=== PATIENT | female | born 1970 | race Caucasian/White ===

== ENCOUNTER 2017-10-22 11:21 | Inpatient (IN) ==
[2017-10-22] MEDS ORDERED: Metoprolol Tartrate 25 MG Tablet PO ONE (12:34)
[2017-10-22] MEDS ORDERED: Chlorhexidine Gluconate 2% 1 Pack (2 Cloths) TOPICAL ONE (12:34)
[2017-10-22] MEDS ORDERED: Bupivacaine/Epinephrine Inj 0.25% 50 ML Vial ONE (12:36)
[2017-10-22] MEDS ORDERED: ceFAZolin 2 GM Premix Inj 2 GM/100 ML BAG IV.SIG ONE (12:49)
[2017-10-22] MEDS ORDERED: Sodium Chlor 0.9% Inj 500 ML IV.SIG SCH (13:00)
[2017-10-22] MEDS ORDERED: ceFAZolin 2 GM/NS 100 ML IV; Q8H IV.SIG SCH ×2 (13:00)
[2017-10-22 13:11] LABS: Baso # (Auto) 0.1 th/mm3 (0.0-0.2); Baso % (Auto) 1.2 % (0.0-2.0); Eos # (Auto) 0.1 th/mm3 (0.0-0.4); Eos % (Auto) 2.3 % (0.0-4.0); Hematocrit 41.9 % (35.0-46.0); Hemoglobin 13.9 gm/dL (11.6-15.3); Lymph # (Auto) 1.8 th/mm3 (1.0-4.8); Lymph % (Auto) 34.9 % (9.0-44.0); Mean Corpuscular HGB Conc 33.2 % (32.0-36.0); Mean Corpuscular Hemoglobin 29.8 pg (27.0-34.0); Mean Corpuscular Volume 89.8 fL (80.0-100.0); Mean Platelet Volume 8.1 fL (7.0-11.0); Mono # (Auto) 0.3 th/mm3 (0.0-0.9); Mono % (Auto) 5.2 % (0.0-8.0); Neut % (Auto) 56.4 % (16.0-70.0); Platelet Count 253 th/mm3 (150-450); Red Blood Count 4.67 mil/mm3 (4.00-5.30); Red Cell Distribution Width 14.8 % (11.6-17.2); White Blood Count 5.2 th/mm3 (4.0-11.0)
[2017-10-22] MEDS ORDERED: Glycopyrrolate Inj 1 MG/5 ML Syringe IV.PUSH ONE (13:34)
[2017-10-22] MEDS ORDERED: Neostigmine Inj 5 MG/5 ML Syringe IV.PUSH ONE (13:34)
[2017-10-22] MEDS ORDERED: Metoprolol Inj 5 MG/5 ML Vial IV.PUSH ONE (13:34)
[2017-10-22] MEDS ORDERED: Lidocaine PF 1% Inj 5 ML Syringe OTHER ONE (13:34)
[2017-10-22 13:53] LABS: Anion Gap 9 meq/L (5-15); Blood Urea Nitrogen 8 mg/dL (7-18); Calcium 8.8 mg/dL (8.5-10.1); Carbon Dioxide 25.6 meq/L (21.0-32.0); Chloride 106 meq/L (98-107); Glomerular Filtration Rate Greater Than 89 mL/min (>89); Glucose,Random 85 mg/dL (74-106); Potassium 4.1 meq/L (3.5-5.1); Sodium 141 meq/L (136-145)
[2017-10-22] MEDS ORDERED: Bupivacaine Liposomal PF 1.3% Inj 20 ML Vial ONE (14:04)
--- NOTE | 2017-10-22 17:17 | XR ---
EXAM DATE: 10/22/2017 5:13 PM EDT AGE/SEX: 46 years / Female INDICATIONS: Instrument verification. CLINICAL DATA: This is the patient's initial encounter. Patient reports that signs and symptoms have been present for 1 day and indicates a pain score of Nonresponsive. MEDICAL/SURGICAL HISTORY: None. None. COMPARISON: POI, CT ABDOMEN AND PELVIS W/ CONTRAST, 10/01/2017. . FINDINGS: Surgical skin kaylyn overlie the midline pelvis. In addition overlying the pelvis is a catheter tubi ng. No metallic retractors are identified. CONCLUSION: Skin kaylyn and radiopaque catheter overlying the pelvis. Electronically signed by: Bronson Horn MD 10/22/2017 5:15 PM EDT
[2017-10-22] MEDS ORDERED: Naloxone Inj 0.4 MG/ML Vial IV.PUSH PRN ×2 (17:25→17:32)
[2017-10-22] MEDS ORDERED: Promethazine 25 MG Supp RECTAL PRN (17:25)
[2017-10-22] MEDS ORDERED: Post-op Orders (for Pharmacy) OTHER ONE (17:25)
[2017-10-22] MEDS ORDERED: *Meperidine Inj 25 MG/ML Vial PERIprocedural Use ONLY ONE (17:28)
[2017-10-22] MEDS: Sod Chloride 0.9% Inj 1,000 ML IV.CONT SCH (17:30)
[2017-10-22] MEDS ORDERED: HYDROmorphone PF Inj 2 MG/ML Vial ONE ×2 (17:34→17:59)
[2017-10-22] MEDS ORDERED: fentaNYL Citrate Inj 100 MCG/2 ML Ampul ONE ×2 (17:44)
[2017-10-22] MEDS ORDERED: Morphine Inj 4 MG/ML Vial ONE (17:44)
[2017-10-22] MEDS ORDERED: HYDROmorphone PCA Inj 6 MG/30 ML PCA.VIAL PCA ONE (17:48)
[2017-10-22] MEDS ORDERED: Balanced Salt Opth Irrigation 15 APPLIC/15 ML Bottle ONE (17:53)
[2017-10-22] MEDS ORDERED: Tetracaine 0.5% Opth Drops 4 ML Bottle ONE (17:53)
[2017-10-22] MEDS: HYDROmorphone PCA Inj 6 MG/30 ML PCA.VIAL PCA PRN (18:35)
[2017-10-22] MEDS ORDERED: Balanced Salt Opth Irrigation 15 APPLIC/15 ML Bottle RIGHT EYE ONE (19:00)
[2017-10-22] MEDS ORDERED: Tetracaine 0.5% Opth Drops 4 ML Bottle RIGHT EYE ONE (19:00)
--- NOTE | 2017-10-22 19:00 | MP ---
cc: Eleno Fan MD, Joseph D MD DATE OF OPERATION: 10/22/2017 PREOPERATIVE DIAGNOSIS: Diverticulitis with colovaginal fistula. POSTOPERATIVE DIAGNOSIS: Diverticulitis with colovaginal fistula. SURGEON Dr. Eleno Fan PROCEDURE PERFORMED: Rigid sigmoidoscopy PROCEDURE IN DETAIL: The patient is in the operating room. See Dr. Howard's complete dictation of the sigmoid resection with me assisting at the critical portions of that procedure. The patient was in [facility], and a rigid sigmoidoscopy was done up to 18 cm to see the distal segment of the rectum which was all normal without any diverticular disease. It had good prep. The EEA stapling 29 device was then placed under the direction with Dr. Howard, connected and fired. I then repeated the rigid sigmoidoscopy to check the anastomosis. We filled the colon with air under water, and there were no leaks along the anastomosis. See Dr. Howard's complete dictation. I then withdrew all the air from doing the rigid sigmoidoscopy, and the rigid sigmoidoscope was then removed. See Dr. Howard's dictation for the completion of the procedure. Eleno Fan MD JDB/adriana , 04:43 PM , 04:49 PM GIANCARLO
--- NOTE | 2017-10-22 21:02 | MP ---
cc: Gonzalo Howard MD DATE OF OPERATION: 10/22/2017 PREOPERATIVE DIAGNOSES: 1. History of complicated diverticulitis. 2. Recurrent diverticulitis. 3. Colovaginal fistula. POSTOPERATIVE DIAGNOSES: 1. History of complicated diverticulitis. 2. Recurrent diverticulitis. 3. Colovaginal fistula. PROCEDURE PERFORMED: 1. Laparoscopic-assisted sigmoid resection and takedown of colovaginal fistula. 2. Laparoscopic-assisted mobilization of splenic flexure. ANESTHESIA: General and regional TAP block. ATTENDING SURGEON: Gonzalo Howard MD SERVICE DESK ANALYST: Eleno Fan MD ESTIMATED BLOOD LOSS: 25 mL COMPLICATIONS: None. FINDINGS: A densely adhered chronic abscess cavity from the mid to distal sigmoid colon to the vaginal cuff and involving 2 distal loops of terminal ileum. Otherwise no intra-abdominal pathology noted. INDICATIONS: The patient is a 46-year-old female who earlier this year was admitted for nonoperative treatment of complicated diverticulitis. The patient responded well to antibiotics and did not require surgical or IR intervention for any drainage procedure. She resolved and was discharged to a liquid diet for outpatient followup. The patient followed up with surgery as well as gastroenterology and was planned to undergo a colonoscopy as well as was under consideration and workup for an elective sigmoid resection. Unfortunately at this time, the patient developed recurrent diverticulitis as diagnosed by CT scan as well as a colovaginal fistula with liquid stool and feculent material draining from her vagina. The patient did have a history of a previous hysterectomy over a decade ago. The patient was managed nonoperatively for this with antibiotics as well as with colonoscopy, and her pain and symptoms did resolve with significant decrease in the volume of drainage from her colovaginal fistula. After discussion with the patient about the risks, benefits, and alternatives to proceeding to the operating room including the possibility of a colostomy, the patient agreed to undergo the procedure. Of note, Dr. Fan's assistance was required throughout this procedure due to its complexity. This patient with chronic and active inflammation in the pelvis as well as with active diverticular-associated colovaginal fistula required 2 surgeons for the safe, efficient, and effective operation in this patient. Dr. Fan assisted during the operation with retraction, suctioning, dissection, operation of stapling devices, as well as intraoperative assistance with visualization and decision making for this complex case. DESCRIPTION OF PROCEDURE: The patient was taken to the operating room and placed in a supine position and placed under general endotracheal anesthesia. The patient was then placed into a lithotomy position. The patient's abdomen and perineum was prepped and draped in a sterile fashion. A timeout was performed. The abdomen was entered through an Optiview technique with a 5 mm port just below the umbilicus. A 5 mm incision was made with 11-blade scalpel and directly visualized entry into the abdominal cavity with a 5 mm camera. We insufflated the abdomen. We surveyed the abdomen, and there was no evidence of any complication from our entry. At this time, we saw no intra-abdominal pathology. Omentum down into the pelvis appeared normal. We then placed 2 additional 5 mm ports. One was in the upper midline, and one was in the lower midline under direct visualization of the laparoscope. We were able to use the laparoscopic LigaSure to take down the splenic flexure. We mobilized the white line of Toldt from the sigmoid colon to the descending colon and to the spleen. The colon was densely adhered to the splenic capsule, and we carefully took this down, all the splenocolic ligaments, with the LigaSure. We opened up the lesser sac by opening the gastrocolic ligament below the level of the short gastrics and took this down to better expose the gastrocolic ligament prior to dividing it. This gave us several centimeters of stretch so we would have ample release of her colon for reconstruction to avoid tension on the anastomosis. At this point in time, we continued our dissection, and we took down some adhesions from the sigmoid to the left pelvic wall. We did encounter the colovaginal fistula site as we worked further distal on the sigmoid colon. This was very dense and could not be taken down laparoscopically without putting significant risk to injuring the bladder. At this point in time, I felt we needed to gain better exposure, and we did place a small hand port type incision below the umbilicus. We directly opened the skin, subcutaneous tissue, and fascia between our most inferior 2 ports below the umbilicus at the midline with the Bovie electrocautery. We placed a large Vahid wound protector. We then placed a Bookwalter retractor to gain some good lift on the pelvic wall with small body wall retractors. This gave us good exposure of her fistula. We used the LigaSure as well as the right angle and dissection, and after approximately 15 minutes of tedious dissection, we were able to free the colon from the vaginal cuff. There was no discernable hole into the vaginal cuff, although there was significant inflammation and thickening of the vaginal cuff. We placed a [id number] 2-0 Vicryl suture in this area in Lembert type fashion to facilitate closure of this fistula site. We also used the Metzenbaum scissors to take down several filmy adhesions as well as some dense adhesions from 2 loops of distal ileum to the sigmoid colon at the site of the perforation and previous chronic abscess. Once we had freed this up, we were able to fully visualize our sigmoid colon. We noted we had very healthy, normal-appearing proximal sigmoid and descending colon as well as the rectum and very distal rectosigmoid junction. It was completely normal grossly. On palpation, this palpated to be normal without any palpable abnormality, and this was pink, and the tissue was not edematous. I felt that performing a resection of the sigmoid colon and a primary anastomosis would be safe and appropriate at this time. We used a GI 55 stapler to divide our proximal margin at the proximal sigmoid at the junction with the descending colon, and then we used the LigaSure device to take the mesentery down below the area of diverticular perforation and down to the splaying of the tinea. We were below the splaying of the mesentery and the splaying of the tinea and exactly at the rectosigmoid junction at this time. We fired a contour stapler with a green load at our distal margin without difficulty. The specimen was passed off with a stitch proximal for permanent processing by pathology. Excellent intact staple line with no bleeding or no leak, and this appeared to be viable and healthy. We did at this time take our distal descending colon, removed the staple line, carefully incised this. A size 29 was found to be the appropriate size for this patient's colon. We placed a pursestring device followed by a 29 EEA anvil in the descending colon and tied down the pursestring device. We then turned our attention towards the distal portion of the anastomosis. Dr. Fan did perform a rigid proctoscopy at this time, and please see his separate dictated operative note. We were able to perform an end-to-end anastomosis with the EEA 29 stapler from the descending colon to the rectosigmoid junction without difficulty. We had good intact donuts after removal of the stapler and inspection. We did insufflate the anastomosis under water with no leak. We did place several small 3-0 silk Lembert sutures at the stapled anastomosis. We irrigated out the abdomen including the pelvis thoroughly until all suctioning was clear with 2 L of warm saline. We placed a 10-Eritrean round Pedro drain down to the pelvis through a separate stab incision in the right lower quadrant. We sutured this in place with a nylon suture. We then placed the omentum back over the midline as well as down into the pelvis. We turned our attention toward closure of the midline. We closed the midline fascia with a #1 looped PDS suture. We closed the skin with skin kaylyn, and a JOHN dressing was applied. We then closed the one remaining port site with 4-0 Monocryl and Dermabond in subxiphoid position. I placed a drain to bulb suction. The patient did undergo a regional TAP block at this time. Please see anesthesia's separate dictated documentation. The patient was discontinued from anesthesia and taken to the PACU in stable condition. All counts were correct with the exception of an additional instrument which was not in the original count. Postoperative x-ray was performed and showed no evidence of retained surgical objects. The patient tolerated the procedure well with no apparent complications. I was present and scrubbed for the entire operation. Dr. Fan was present and actively assisted throughout the entire operation with the exception of the laparoscopic mobilization of splenic flexure. MD SHASHA Brown/adriana , 06:00 PM , 06:20 PM
[2017-10-22] MEDS: Piperacil/Tazo 3.375 GM Premix 50 ML IV.SIG SCH (21:14)
[2017-10-22] MEDS: Enoxaparin Inj 40 MG/0.4 ML Syringe SQ SCH (21:16)
[2017-10-23] MEDS: HYDROmorphone PCA Inj 6 MG/30 ML PCA.VIAL PCA PRN ×4 (02:49→20:47)
[2017-10-23 07:07] LABS: Baso % (Auto) 0.2 % (0.0-2.0); Eos % (Auto) 0.3 % (0.0-4.0); Hematocrit 36.4 % (35.0-46.0); Hemoglobin 12.1 gm/dL (11.6-15.3); Lymph # (Auto) 1.3 th/mm3 (1.0-4.8); Lymph % (Auto) 14.1 % (9.0-44.0); Mean Corpuscular HGB Conc 33.3 % (32.0-36.0); Mean Corpuscular Hemoglobin 30.1 pg (27.0-34.0); Mean Corpuscular Volume 90.5 fL (80.0-100.0); Mean Platelet Volume 8.3 fL (7.0-11.0); Mono # (Auto) 0.4 th/mm3 (0.0-0.9); Mono % (Auto) 4.6 % (0.0-8.0); Neut # (Auto) 7.4 th/mm3 (1.8-7.7); Neut % (Auto) 80.8 % (16.0-70.0); Platelet Count 221 th/mm3 (150-450); Red Blood Count 4.03 mil/mm3 (4.00-5.30); Red Cell Distribution Width 15.2 % (11.6-17.2); White Blood Count 9.1 th/mm3 (4.0-11.0)
[2017-10-23 07:19] LABS: Anion Gap 11 meq/L (5-15); Blood Urea Nitrogen 8 mg/dL (7-18); Calcium 7.7 mg/dL (8.5-10.1); Carbon Dioxide 24.3 meq/L (21.0-32.0); Chloride 109 meq/L (98-107); Glomerular Filtration Rate Greater Than 89 mL/min (>89); Glucose,Random 90 mg/dL (74-106); Potassium 4.2 meq/L (3.5-5.1); Sodium 144 meq/L (136-145)
[2017-10-23] MEDS: Piperacil/Tazo 3.375 GM Premix 50 ML IV.SIG SCH ×4 (08:45→19:48)
--- NOTE | 2017-10-23 08:52 | P.PNGS ---
Subjective Patient reports: feels better, pain is less Physical Exam Vital signs: Vital Signs 10/22/17 12:51 10/22/17 17:27 10/22/17 17:40 Temperature 97.6 F 96.4 F L Pulse Rate 61 60 59 L Respiratory Rate 20 18 18 Blood Pressure 95/64 L 120/65 95/47 L Pulse Oximetry 98 100 100 10/22/17 18:00 10/22/17 18:10 10/22/17 18:15 Temperature Pulse Rate 51 L 60 51 L Respiratory Rate 18 16 18 Blood Pressure 90/53 L 82/53 L Pulse Oximetry 100 100 100 10/22/17 18:30 10/22/17 18:37 10/22/17 18:45 Temperature 97.5 F L Pulse Rate 67 52 L Respiratory Rate 18 16 18 Blood Pressure 85/48 L 93/47 L Pulse Oximetry 100 100 10/22/17 19:00 10/22/17 19:09 10/22/17 20:00 Temperature 98.2 F 97.2 F L Pulse Rate 52 L 59 L 53 L Respiratory Rate 18 18 16 Blood Pressure 90/48 L 95/47 L 92/49 L Pulse Oximetry 100 100 91 L 10/23/17 00:00 10/23/17 04:00 10/23/17 07:49 Temperature 97.5 F L 98.7 F 97.6 F Pulse Rate 61 66 67 Respiratory Rate 17 17 16 Blood Pressure 96/51 L 100/60 93/55 L Pulse Oximetry 91 L 91 L 94 L Intake & Output 10/22/17 10/23/17 10/23/17 18:59 06:59 18:59 Intake Total 1450 / 1450 Output Total 240 / 240 Balance 1210 / 1210 Weight 72.3 kg 72.3 kg Intake: IV 150 / 150 Ofirmev Inj 1,000 mg In 100 ml 100 / 100 @ 400 mls/hr IV.SIG Q6H [facility] Rx# :[id number] Zosyn 3.375 GM Premix 50 ML @ 50 / 50 100 mls/hr IV.SIG Q6H [facility] Rx#: [id number] Oral 800 / 800 Other 500 / 500 Output: Urine Amount (Catheter) 150 / 150 Indwelling Urethral Catheter 150 / 150 Wound Drainage 90 / 90 Right Lower Abdomen SUGEY Drain Other: Other Intake Source Saline Solution # Voids 500 Weight On Admission 73.3 kg - Constitutional no acute distress - Routine Respiratory Exam Present: CTA bilaterally - Routine Cardiovascular Exam Present: RRR - Routine Abdominal Exam Present: soft Comments: juan j Sexton s/d/i - Urinary Catheter Management Indwelling Urethral Catheter Cath placed during this visit: no Reason for continuing: Other continuation reason Assessment and Plan - Assessment (1) Diverticulitis large intestine Code(s): K57.32 - Diverticulitis of large intestine without perforation or abscess without bleeding Status: Acute - Plan 47yo female s/p lap assisted sigmoid colectomy, stable had corneal abrasion from anesthesia, will ask optho to come by and check right eye clears OOB DC palafox Friday
[2017-10-23] MEDS: Sod Chloride 0.9% Inj 1,000 ML IV.CONT SCH ×2 (13:55)
[2017-10-23] MEDS: Enoxaparin Inj 40 MG/0.4 ML Syringe SQ SCH ×2 (19:48→23:34)
[2017-10-24] MEDS: Piperacil/Tazo 3.375 GM Premix 50 ML IV.SIG SCH ×4 (02:23→20:46)
[2017-10-24] MEDS: Sod Chloride 0.9% Inj 1,000 ML IV.CONT SCH ×3 (02:24→20:47)
[2017-10-24] MEDS: HYDROmorphone PCA Inj 6 MG/30 ML PCA.VIAL PCA PRN ×3 (06:42→21:34)
--- NOTE | 2017-10-24 08:22 | P.PNGS ---
Subjective Patient reports: feels better, still having pain Physical Exam Vital signs: Vital Signs 10/23/17 12:00 10/23/17 16:00 10/23/17 19:05 Temperature 97.0 F L 97.7 F Pulse Rate 55 L 60 Respiratory Rate 16 17 16 Blood Pressure 95/62 L 118/67 Pulse Oximetry 92 L 96 10/23/17 20:00 10/23/17 21:17 10/24/17 00:00 Temperature 98.0 F 97.9 F Pulse Rate 63 68 Respiratory Rate 17 16 16 Blood Pressure 107/58 L 104/62 Pulse Oximetry 98 95 10/24/17 01:47 10/24/17 07:12 10/24/17 07:32 Temperature 97.9 F Pulse Rate 75 Respiratory Rate 16 16 14 Blood Pressure 127/70 Pulse Oximetry 90 L Intake & Output 10/23/17 10/24/17 10/24/17 18:59 06:59 18:59 Intake Total 300 / 300 2000 / 2000 Output Total 830 / 830 675 / 675 Balance -530 / -530 1325 / 1325 Weight 79.8 kg Intake: IV 300 / 300 1100 / 1100 NS Inj 1,000 ML @ 100 mls/hr IV 1000 / 1000 .CONT .Q10H [facility] Rx#:[id number] Ofirmev Inj 1,000 mg In 100 ml 200 / 200 @ 400 mls/hr IV.SIG Q6H [facility] Rx# :[id number] Zosyn 3.375 GM Premix 50 ML @ 100 / 100 100 / 100 100 mls/hr IV.SIG Q6H [facility] Rx#: [id number] Oral 900 / 900 Output: Urine 675 / 675 Urine Amount (Catheter) 800 / 800 Indwelling Urethral Catheter 800 / 800 Wound Drainage 30 / 30 0 / 0 Right Lower Abdomen SUGEY Drain 30 / 30 0 / 0 Other: # Emeses 1 - Constitutional no acute distress - Routine Abdominal Exam Present: soft Comments: non-distended, postop pain, inc c/d/i, SUGEY clear - Urinary Catheter Management Indwelling Urethral Catheter Cath placed during this visit: yes, but has since been removed by the nurse Reason for continuing: Not indwelling catheter Removal date: 10/24/17 Removal time: 06:38 Assessment and Plan - Assessment (1) Diverticulitis large intestine Code(s): K57.32 - Diverticulitis of large intestine without perforation or abscess without bleeding Status: Acute - Plan 47yo female s/p lap assisted sigmoid colectomy, stable pain ok, 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
[2017-10-24] MEDS ORDERED: Acetaminophen 325 MG Tablet PO PRN (08:47)
[2017-10-24] MEDS: Enoxaparin Inj 40 MG/0.4 ML Syringe SQ SCH (20:46)
[2017-10-25] MEDS: Piperacil/Tazo 3.375 GM Premix 50 ML IV.SIG SCH ×4 (02:00→13:38)
[2017-10-25] MEDS: Sod Chloride 0.9% Inj 1,000 ML IV.CONT SCH ×2 (06:33→08:38)
[2017-10-25] MEDS: HYDROmorphone PCA Inj 6 MG/30 ML PCA.VIAL PCA PRN ×2 (06:39→12:44)
--- NOTE | 2017-10-25 18:00 | P.PNGS ---
Subjective Patient reports: feels better Physical Exam Vital signs: Vital Signs 10/24/17 19:03 10/24/17 20:00 10/24/17 22:04 Temperature 98.2 F Pulse Rate 75 Respiratory Rate 16 16 16 Blood Pressure 149/83 H Pulse Oximetry 93 L 10/25/17 00:00 10/25/17 02:04 10/25/17 07:09 Temperature 98.3 F Pulse Rate 81 Respiratory Rate 17 16 16 Blood Pressure 140/83 Pulse Oximetry 95 10/25/17 08:00 10/25/17 11:59 10/25/17 14:39 Temperature 97.9 F 97.7 F 97.7 F Pulse Rate 83 65 73 Respiratory Rate 18 18 19 Blood Pressure 155/81 H 158/86 H 158/89 H Pulse Oximetry 91 L 94 L 96 Intake & Output 10/24/17 10/25/17 10/25/17 18:59 06:59 18:59 Intake Total 2300 / 2300 1900 / 1900 1100 / 1100 Output Total 30 / 30 110 / 110 60 / 60 Balance 2270 / 2270 1790 / 1790 1040 / 1040 Weight 81.2 kg Intake: IV 1100 / 1100 1100 / 1100 1100 / 1100 NS Inj 1,000 ML @ 30 mls/hr IV. 1000 / 1000 1000 / 1000 1000 / 1000 CONT .Q24H [facility] Rx#:[id number] Zosyn 3.375 GM Premix 50 ML @ 100 / 100 100 / 100 100 / 100 100 mls/hr IV.SIG Q6H [facility] Rx#: [id number] Oral 1200 / 1200 800 / 800 Output: Wound Drainage 30 / 30 110 / 110 60 / 60 Right Lower Abdomen SUGEY Drain 30 / 30 110 / 110 60 / 60 Other: # Voids 2 4 Date of Last Bowel Movement 10/24/17 10/24/17 # Bowel Movements 1 - Constitutional no acute distress - Routine Respiratory Exam Present: CTA bilaterally - Routine Cardiovascular Exam Present: RRR - Routine Abdominal Exam Present: soft, normoactive bowel sounds - Routine Neurological Exam Present: alert, oriented X3 - Urinary Catheter Management Indwelling Urethral Catheter Cath placed during this visit: yes, but has since been removed by the nurse Reason for continuing: Not indwelling catheter Removal date: 10/24/17 Removal time: 06:38 Assessment and Plan - Assessment (1) Diverticulitis large intestine Code(s): K57.32 - Diverticulitis of large intestine without perforation or abscess without bleeding Status: Acute - Plan 47yo female s/p lap assisted sigmoid colectomy, stable +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
[2017-10-25] MEDS: Enoxaparin Inj 40 MG/0.4 ML Syringe SQ SCH (20:23)
--- NOTE | 2017-11-11 13:12 | P.DS ---
Date of admission: 10/22/17 11:21 Primary care physician: Kelly Kohler Attending physician on discharge: Gonzalo Howard Anticipated date of discharge: 10/26/17 Brief History from admission: 47yo female s/p lap assisted sigmoid colectomy, stable DS: Diagnosis - Discharge Diagnosis (1) Diverticula of colon Status: Acute DS: Summary Hospital Course: This is a 47 year olf female s/p lap assisted sigmoid colectomy. She was able to tolerate a regular diet. Her pain was controlled using oral pain medications. Her drain was removed. She will follow up in the office. - Time Spent with Patient Total time spent providing and/or coordinating discharge services: Less than 30 minutes - Quality: VTE Deep Vein Thrombosis/Pulmonary Embolism Present on Admission: No Exam Narrative: Alert and awake Abd: soft; minimally tender; incision c/d/i Results Procedures completed during hospitalization: 47 year old female s/p lap assisted sigmoid colectomy, stable Completed studies during hospitalization: Pending at discharge 10/22/17 08:33 Surgical [PTH] Routine - Impressions ITS Impressions Abdomen X-Ray 10/22/17 00:00 CONCLUSION: Skin kaylyn and radiopaque catheter overlying the pelvis. Discharge Plan - Discharge Disposition Patient Disposition: Discharge Home - Discharge Condition Condition: Good - Discharge Order Discharge Orders: Discharge Order (Routine); Ordered 10/26/17 Ordered By: Gonzalo Howard - Discharge Details Anticipated Discharge Date: 10/26/17 Discharge Comment: DC home if tolerates breakfast - Physicians Team Attending Provider: Gonzalo Howard Other Providers: Eleno Fan MD ; Surgeons,[facility] - Rxs /Orders / Referrals /Forms Prescriptions: Continue levothyroxine 175 mcg Tablet 175 mcg PO DAILY lisinopril 20 mg Tablet 20 mg PO DAILY Referrals: Kelly Kohler [Other] - See Instructions Gonzalo Howard MD [Physician] - See Instructions (Appt set for Nov 13 at 3:30PM) - Discharge Instructions Patient Printed Instructions: Colectomy (DC), Acute Wound Care (DC), Surgical Site Infections (DC), Colectomy Diet (DC)
== END 2017-10-26 10:44 | disposition home or self-care (01) ==
LOC: HSDI 11:21 → N07 19:12
PROVIDERS: ADMIT Surgery; ATTEND Surgery